=== PATIENT | female | born 1985 | race Asian ===

== ENCOUNTER 2017-03-16 11:37 | Emergency (ER) | payer OTHER ==
[~2017-03-16] VITALS: Ht 142.2 cm; Wt 75.7 kg
[2017-03-16] MEDS ORDERED: ADENOSINE 6 MG/2 ML ONE (11:56)
[2017-03-16] MEDS ORDERED: PLEASE ENTER HEIGHT AND WEIGHT MC SCH (12:00)
[2017-03-16] MEDS ORDERED: ADENOSINE 6 MG/2 ML IVPush ONE (12:00)
[2017-03-16] MEDS ORDERED: PLEASE ENTER ALLERGIES MC SCH ×2 (12:00)
[2017-03-16 12:19] LABS: HEMATOCRIT 44.4 % (34.6-47.8); WHITE BLOOD COUNT 7.6 x10^3/uL (3.4-10)
[2017-03-16 12:28] LABS: BLOOD UREA NITROGEN 14 mg/dL (7-18)
[2017-03-16] MEDS ORDERED: METOPROLOL TARTRATE 25 MG TABLET PO SCH (12:30)
[2017-03-16 12:47] VITALS: BP 108/82
== END 2017-03-16 13:11 | disposition home or self-care (01) ==
LOC: ED 12:57
DX: I47.1 Supraventricular tachycardia (principal)
CPT/HCPCS: 36415; 80048; 82040; 83735; 85025; 93005; 96374; 99291; J0153

== ENCOUNTER → 2017-05-19 | Outpatient (CLI) | payer OTHER | END | disposition home or self-care (01) | LOC: CFH 10:07 | PROVIDERS: ATTEND Internal Medicine Cardiovascular Disease | DX: I47.1 Supraventricular tachycardia (principal); R42 Dizziness and giddiness | CPT/HCPCS: 93306 ==

== ENCOUNTER 2020-09-08 06:10 | Inpatient (IN) | payer OTHER ==
[~2020-09-08] VITALS: Ht 154.9 cm; Wt 74.8 kg
[2020-09-08] MEDS ORDERED: ACETAMINOPHEN 325 MG TABLET PO PRN (06:30)
[2020-09-08] MEDS ORDERED: PLEASE ENTER HEIGHT AND WEIGHT MC SCH (06:30)
[2020-09-08] MEDS ORDERED: ONDANSETRON 2MG/ML, 2ML IVPush PRN ×2 (06:30→10:30)
[2020-09-08] MEDS ORDERED: MIDAZOLAM 1 MG/ML, 5ML ONE (07:11)
[2020-09-08] MEDS ORDERED: LIDOCAINE 1%, 20ML ONE (07:12)
[2020-09-08] MEDS ORDERED: FENTANYL PF 100 MCG/2ML ONE (07:12)
[2020-09-08] MEDS ORDERED: ADENOSINE 6 MG/2 ML ONE (07:12)
[2020-09-08] MEDS ORDERED: ISOPROTERENOL 0.2MG/ML, 5ML ONE (07:12)
[2020-09-08 07:38] LABS: BASOPHILS % (AUTO) 1 % (0-1); EOSINOPHILS % (AUTO) 3 % (1-7); LYMPHOCYTES % (AUTO) 28 % (22-44); MEAN CORPUSCULAR HEMOGLOBIN 31.8 pg (27.0-34.8); MEAN CORPUSCULAR HGB CONC 33.7 g/dL (32.4-35.8); MONOCYTES % (AUTO) 10 % (2-9); NEUTROPHILS % (AUTO) 59 % (42-75); PLATELET COUNT 248 x10^3/uL (130-400); RED BLOOD COUNT 4.31 x10^6/uL (3.82-5.3); RED CELL DISTRIBUTION WIDTH 14.1 % (9.6-15.2)
[2020-09-08 07:39] LABS: MD NO
[2020-09-08 07:50] LABS: ALANINE AMINOTRANSFERASE 23 U/L (12-78); ALBUMIN 3.6 g/dL (3.4-5.0); ANION GAP 5 mmol/L (5-15); CALCIUM 8.5 mg/dL (8.5-10.1); CHLORIDE 109 mmol/L (98-107); CREATININE 0.66 mg/dL (0.55-1.02)
[2020-09-08 07:55] LABS: ALKALINE PHOSPHATASE 36 U/L (45-117); BILIRUBIN,TOTAL 0.2 mg/dL (0.2-1.0); TOTAL PROTEIN 7.5 g/dL (6.4-8.2)
[2020-09-08] MEDS ORDERED: SODIUM CHLORIDE 0.9% 1,000 ML IV SCH (09:00)
[2020-09-08] MEDS ORDERED: HEPARIN 1,000 UNITS/ML, 10ML ONE (09:22)
[2020-09-08] MEDS ORDERED: PHENYLEPHRINE 10 MG/ML ONE ×4 (12:47→17:16)
[2020-09-08 14:45] VITALS: BP 79/47
[2020-09-08] MEDS: PHENYLEPHRINE 50 MG in SODIUM CHLORIDE 0.9% 245 ML IV PRN (15:30)
[2020-09-08] MEDS: SODIUM CHLORIDE 0.9% 1,000 ML IV SCH (16:46)
[2020-09-08] MEDS ORDERED: SODIUM CHLORIDE 0.9%, 500ML IVBOLUS ONE (17:00)
[2020-09-09] MEDS: SODIUM CHLORIDE 0.9% 1,000 ML IV SCH ×3 (01:48→18:24)
[2020-09-09] MEDS: PHENYLEPHRINE 50 MG in SODIUM CHLORIDE 0.9% 245 ML IV PRN (02:48)
[2020-09-09] MEDS: ASPIRIN 81 MG TABLET EC PO SCH (06:18)
[2020-09-10] MEDS: SODIUM CHLORIDE 0.9% 1,000 ML IV SCH ×3 (03:31→20:00)
[2020-09-10] MEDS: ASPIRIN 81 MG TABLET EC PO SCH (05:02)
[2020-09-10] MEDS ORDERED: SODIUM CHLORIDE NASAL SPRAY 45ML BOTTLE NAS PRN (08:30)
[2020-09-10] MEDS ORDERED: KETOROLAC 30 MG/1 ML IVPush ONE (08:30)
[2020-09-10 09:11] VITALS: BP 97/61
[2020-09-10 12:58] VITALS: BP 100/71
[2020-09-10 17:25] VITALS: BP 99/71
[2020-09-10 19:51] VITALS: BP 115/81
[2020-09-11 01:24] VITALS: BP 118/80
[2020-09-11] MEDS: SODIUM CHLORIDE 0.9% 1,000 ML IV SCH (04:01)
[2020-09-11] MEDS: ASPIRIN 81 MG TABLET EC PO SCH (05:08)
[2020-09-11 07:01] VITALS: BP 118/76
[2020-09-11] MEDS ORDERED: ASPI81TA45 PO (09:59)
[2020-09-11] MEDS ORDERED: COLC0.6C3 PO (09:59)
== END 2020-09-11 12:36 | disposition home or self-care (01) | DRG 274 ==
LOC: CACL 06:10 → OBSVTOIN 10:19 → ORIP 10:19 → CCU 14:27 → 5SO 09-10 17:15 → DCLOUNGE 09-11 12:01
PROVIDERS: ADMIT Internal Medicine Cardiovascular Disease; ATTEND Internal Medicine Cardiovascular Disease
PROC: 4A023FZ Measurement of Cardiac Rhythm, Percutaneous Approach (ICD-10-PCS; principal; 2020-09-08)
PROC: 02583ZZ Destruction of Conduction Mechanism, Percutaneous Approach (ICD-10-PCS; 2020-09-08)
PROC: 4A0234Z Measurement of Cardiac Electrical Activity, Percutaneous Approach (ICD-10-PCS; 2020-09-08)
PROC: 02K83ZZ Map Conduction Mechanism, Percutaneous Approach (ICD-10-PCS; 2020-09-08)
PROC: B244ZZZ Ultrasonography of Right Heart (ICD-10-PCS; 2020-09-08)
DX: I47.1 Supraventricular tachycardia (principal); I31.3 Pericardial effusion (noninflammatory); J98.11 Atelectasis; E78.5 Hyperlipidemia, unspecified; E87.6 Hypokalemia; R09.02 Hypoxemia; I95.9 Hypotension, unspecified; Z20.822 Contact with and (suspected) exposure to COVID-19
CPT/HCPCS: 36415; 93462; 93613; 93621; 93623; 93653; 93662; J3490; 80053; 84703; 85014; 85018; 85025; 85347; 87081; 93306; 93308; 93321; 93325; C1766; C1893; C1894; G0378; J0153; J1644; J1885; J2250; J3010; C1730; C1759; C2630; J2370; J7030; J7040; J7050

== ENCOUNTER → 2020-09-28 | Outpatient (CLI) | payer OTHER ==
[~2020-09-28] MED LIST: ASPI81TA45 PO; COLC0.6C3 PO
== END | disposition home or self-care (01) ==
LOC: CVU 09:05
PROVIDERS: ATTEND Physician Assistant Medical
DX: I31.3 Pericardial effusion (noninflammatory) (principal)
CPT/HCPCS: 93308; 93321; 93325

== ENCOUNTER 2021-01-05 10:05 | Outpatient (CLI) | payer OTHER | END 2021-01-05 23:59 | disposition home or self-care (01) | LOC: RAD 10:05 | PROVIDERS: ATTEND Internal Medicine | DX: R13.10 Dysphagia, unspecified (principal); R09.89 Other specified symptoms and signs involving the circulatory and respiratory systems | CPT/HCPCS: 74230 ==